=== PATIENT | female | born 1980 | race Caucasian/White ===

== ENCOUNTER 2020-12-11 20:10 | Emergency (ER) | payer SELFPAY ==
[2020-12-11 21:22] VITALS: BP 123/84; PULSE 95; O2SAT 98
--- NOTE | 2020-12-11 21:25 | ERPHSYRPT ---
- History of Present Illness Time Seen by Provider: 12/11/20 20:25 Source: patient Exam Limitations: no limitations Patient Subjective Stated Complaint: pt states "My boyfriend and I were messing around last night and my knee popped." Triage Nursing Assessment: pt ambulated into the er; pt is axo x4; pt is obese; c/o left knee pain; states 9/10 left knee pain; strong left pedal pulse; pt has tenderness with palpation to left knee; no swelling present to left knee; pt had limp with ambulation to left leg; pt states that she has taken tylenol with no relief; hypertension Physician History: Patient is a 40-year-old female presents to our emergency department with complaint of pain to the anterior aspect of her left knee. Patient states she was playing wrestling with her boyfriend when she felt a pop sensation. Injury occurred prior to arrival. Pain described as an ache that is well localized. No radiation. Pain worse with weightbearing. Pain worse with palpation. Pain improved with rest. Patient initially declined pain medication but then agreed to ibuprofen. No other injuries reported. No numbness tingling or weakness. Patient is otherwise generally healthy she is a diabetic however diabetes is well controlled. She voices no other complaints concerns at this time. Method of Injury: twisted Occurred: just prior to arrival Quality: constant Severity of Pain-Max: moderate Severity of Pain-Current: mild Lower Extremities Pain: knee: left Modifying Factors: Improves With: movement (Weightbearing makes it worse. Rest makes it better.) Associated Symptoms: none Allergies/Adverse Reactions: lithium Allergy (Verified 12/11/20 20:22) Vomiting Hx Tetanus, Diphtheria Vaccination/Date Given: Yes Hx Influenza Vaccination/Date Given: No Hx Pneumococcal Vaccination/Date Given: No Immunizations Up to Date: Yes Travel Risk - International Travel Have you traveled outside of the country in past 3 weeks: No - Coronavirus Screening Are you exhibiting any of the following symptoms?: No Close contact with a COVID-19 positive Pt in past 14-21 Days: No - Vaccine Status Have you recieved a Covid-19 vaccination: No - Review of Systems Constitutional: No Symptoms, No Fever, No Chills Eyes: No Symptoms Ears, Nose, & Throat: No Symptoms Respiratory: No Symptoms, No Cough, No Dyspnea Cardiac: No Symptoms, No Chest Pain, No Edema, No Syncope Abdominal/Gastrointestinal: No Symptoms, No Abdominal Pain, No Nausea, No Vomiting, No Diarrhea Genitourinary Symptoms: No Symptoms, No Dysuria Musculoskeletal: No Symptoms, No Back Pain, No Neck Pain Skin: No Symptoms, No Rash Neurological: No Symptoms, No Dizziness, No Focal Weakness, No Sensory Changes Psychological: No Symptoms Endocrine: No Symptoms Hematologic/Lymphatic: No Symptoms Immunological/Allergic: No Symptoms All Other Systems: Reviewed and Negative - Past Medical History Pertinent Past Medical History: Yes Endocrine Medical History: Diabetes Type II, Hypothyroidism Psycho-Social History: Anxiety, Depression - Past Surgical History Past Surgical History: Yes Gastrointestinal: Cholecystectomy Female Surgical History: Tubal Ligation - Social History Smoking Status: Former smoker Exposure to second hand smoke: Yes Drug Use: none Patient Lives Alone: No - Female History Hx Now: No - Nursing Vital Signs Nursing Vital Signs: Initial Vital Signs Temperature 99.1 F 12/11/20 20:23 Pulse Rate 106 H 12/11/20 20:23 Respiratory Rate 20 12/11/20 20:23 Blood Pressure 142/122 12/11/20 20:23 O2 Sat by Pulse Oximetry 97 12/11/20 20:23 Pain Scale Pain Intensity 7 - Physical Exam General Appearance: no apparent distress, alert Eyes, Ears, Nose, Throat Exam: moist mucous membranes Neck Exam: non-tender, supple Cardiovascular/Respiratory Exam: chest non-tender, normal breath sounds, regular rate/rhythm, no respiratory distress Gastrointestinal/Abdominal Exam: non-tender, guarding Back Exam: normal inspection, No vertebral tenderness Hips Exam: bilateral: non-tender, normal inspection, normal range of motion, no evidence of injury Legs Exam: bilateral leg: non-tender, normal inspection, normal range of motion, no evidence of injury Knees Exam: right knee: non-tender, normal inspection, normal range of motion, no evidence of injury, left knee: pain, other (No swelling. Overlying soft tissue intact. Tenderness to palpation along the patellar ligament. All ligaments are stable. No leg leg. Extremity neurovascular intact distally. Compartments are soft.) Ankle Exam: bilateral ankle: non-tender, normal inspection, normal range of motion, no evidence of injury Foot Exam: bilateral foot: non-tender, normal inspection, normal range of motion, no evidence of injury Neuro/Tendon Exam: normal sensation, normal motor functions Mental Status Exam: alert, oriented x 3, cooperative Skin Exam: normal color, warm, dry SpO2 Interpretation: normal SpO2: 98 O2 Delivery: Room Air - Course Nursing assessment & vital signs reviewed: Yes - Radiology Exams Knee X-ray Interpretation: Interpreted by me (No fracture or dislocation. No soft tissue abnormalities.) Ordered Tests: Active Orders 24 hr Category Date Time Status KNEE (3 VIEWS) Stat Exams 12/11/20 20:39 Taken Medication Summary Generic Name Dose Route Start Last Admin Trade Name Marci PRN Reason Stop Dose Admin Ibuprofen 600 mg 12/11/20 21:32 Motrin 600 Mg PO 12/11/20 21:33 STAT ONE - Progress Progress: improved Progress Note: Patient given ibuprofen for pain. X-ray negative for fracture dislocation. No soft tissue abnormalities. Patient declined crutches. Patient does not need a work note at this time. Will discharge at this time. Pain control with [id number] analgesics as needed. Patient agrees to follow-up with her primary care doctor within 48 hours for reevaluation. 12/11/20 21:38 Counseled pt/family regarding: diagnosis, need for follow-up, rad results - Departure Departure Disposition: Home Clinical Impression: Knee pain Condition: Stable Critical Care Time: No Referrals: DOCTOR,NO FAMILY [Primary Care Provider] - MONICA WILKINSON [ACTIVE STAFF] - Instructions: Knee Pain (DC) Additional Instructions: Discharge/Care Plan TYRAKALEN KAMILAH was seen on 12/11/20 in the Emergency Room. The patient was counseled regarding Diagnosis,Lab results, Imaging studies, need for follow up and when to return to the Emergency Room. Prescriptions given: Discharge Note I have spoken with the patient and/or caregivers. I have explained the patient's condition, diagnosis and treatment plan based on the information available to me at this time. I have answered the patient's and/or caregiver's questions and addressed any concerns. The patient and/or caregivers have as good understanding of the patient's diagnosis, condition and treatment plan as can be expected at this point. The vital signs have been stable. The patient's condition is stable and appropriate for discharge from the emergency department. The patient will pursue further outpatient evaluation with the primary care physician or other designated or consulting physician as outlined in the discharge instructions. The patient and/or caregivers are agreeable to this plan of care and follow-up instructions have been explained in detail. The patient and/or caregivers have received these instruction. The patient/and or caregivers are aware that any significant change in condition or worsening of symptoms should prompt an immediate return to this or the closest emergency department or call 911.
[2020-12-11] MEDS ORDERED: MOTRIN 600 MG PO ONE (21:32)
[2020-12-11] MEDS ORDERED: MOTRIN 600 MG ONE (21:34)
--- NOTE | 2020-12-12 08:44 | XRAY ---
Indication: Pain. Comparison: None 3 view left knee obtained. No bony, articular, or soft tissue abnormalities.
== END 2020-12-11 21:45 | disposition home or self-care (01) ==
LOC: ED 20:10
DX: M25.562 Pain in left knee (principal); E11.9 Type 2 diabetes mellitus without complications; E03.9 Hypothyroidism, unspecified; F41.9 Anxiety disorder, unspecified; F32.9 Major depressive disorder, single episode, unspecified
CPT/HCPCS: 73562; 99283; A9270-GY

== ENCOUNTER 2021-02-18 19:17 | Emergency (ER) | payer OTHER ==
[2021-02-18] MEDS ORDERED: TORAdol 30 mg Injection IM ONE (19:47)
--- NOTE | 2021-02-18 19:52 | ERPHSYRPT ---
- History of Present Illness Time Seen by Provider: 02/18/21 19:40 Source: patient Exam Limitations: no limitations Patient Subjective Stated Complaint: pt states she tripped over a curb yesterday and hurt her knee. denies falling. states when she tripped she twisted her lt knee and heard a pop. Triage Nursing Assessment: pt alert and oriented, answers questions approp. pt ambulates into room with limping gait noted. respirations nonlabored. skin warm and dry. tenderness noted to lt knee with light palpation. pedal pu lse and cap refill wnl. Physician History: Patient is a 40-year-old female presents to our ED complaining of left knee pain. Patient states she injured her knee yesterday. Patient was stepping down a curb when she twisted her knee and felt a pop sensation. Patient worked a full shift today. After her shift patient's left knee still felt sore. Patient is here for an evaluation. No other injuries reported. Pain described as an ache that is localized. No radiation. Pain worse with palpation and weightbearing. Pain improved with rest. Symptoms are mild to moderate in intensity. Patient otherwise voices no other complaints or concerns. Method of Injury: twisted Occurred: yesterday Quality: constant Severity of Pain-Max: moderate Severity of Pain-Current: mild Lower Extremities Pain: knee: left Modifying Factors: Improves With: movement Associated Symptoms: none Allergies/Adverse Reactions: lithium Allergy (Verified 02/18/21 20:13) Vomiting Home Medications: Insulin Glargine,Hum.rec.anlog [Lantus Solostar] 27 unit SQ HS 02/18/21 [History] Insulin Lispro 0 unit SQ TID 02/18/21 [History] Levothyroxine Sodium 50 Mcg [Synthroid 50 Mcg] 50 mcg PO DAILY 02/18/21 [History] Sertraline HCl 50 mg [Zoloft 50 mg Tablet] 50 mg PO DAILY 02/18/21 [History] Hx Tetanus, Diphtheria Vaccination/Date Given: No Hx Influenza Vaccination/Date Given: No Hx Pneumococcal Vaccination/Date Given: No Immunizations Up to Date: No Travel Risk - International Travel Have you traveled outside of the country in past 3 weeks: No - Coronavirus Screening Are you exhibiting any of the following symptoms?: No Close contact with a COVID-19 positive Pt in past 14-21 Days: No - Vaccine Status Have you recieved a Covid-19 vaccination: Yes Network 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: [employer] - Review of Systems Constitutional: No Symptoms, No Fever, No Chills Eyes: No Symptoms Ears, Nose, & Throat: No Symptoms Respiratory: No Symptoms, No Cough, No Dyspnea Cardiac: No Symptoms, No Chest Pain, No Edema, No Syncope Abdominal/Gastrointestinal: No Symptoms, No Abdominal Pain, No Nausea, No Vomiting, No Diarrhea Genitourinary Symptoms: No Symptoms, No Dysuria Musculoskeletal: No Symptoms, No Back Pain, No Neck Pain Skin: No Symptoms, No Rash Neurological: No Symptoms, No Dizziness, No Focal Weakness, No Sensory Changes Psychological: No Symptoms Endocrine: No Symptoms Hematologic/Lymphatic: No Symptoms Immunological/Allergic: No Symptoms All Other Systems: Reviewed and Negative - Past Medical History Pertinent Past Medical History: Yes Endocrine Medical History: Diabetes Type II, Hypothyroidism Psycho-Social History: Anxiety, Depression Other Medical History: low vit d and b - Past Surgical History Past Surgical History: Yes Gastrointestinal: Cholecystectomy Female Surgical History: Tubal Ligation - Social History Smoking Status: Current every day smoker How long have you smoked: years Exposure to second hand smoke: Yes Drug Use: none Patient Lives Alone: No - Female History Hx Last Menstrual Period: last month Hx Now: No (tubal) - Nursing Vital Signs Nursing Vital Signs: Initial Vital Signs Temperature 97.3 F 02/18/21 19:32 Pulse Rate 84 02/18/21 19:32 Respiratory Rate 18 02/18/21 19:32 Blood Pressure 168/108 02/18/21 19:32 O2 Sat by Pulse Oximetry 97 02/18/21 19:32 Pain Scale Pain Intensity 5 - Physical Exam General Appearance: no apparent distress, alert Eyes, Ears, Nose, Throat Exam: TMs normal, pharynx normal, moist mucous membranes Neck Exam: normal inspection, non-tender, supple Cardiovascular/Respiratory Exam: chest non-tender, normal breath sounds, regular rate/rhythm, no respiratory distress Gastrointestinal/Abdominal Exam: non-tender, No guarding Back Exam: normal inspection, normal range of motion, No vertebral tenderness Hips Exam: bilateral: non-tender, normal inspection, normal range of motion, no evidence of injury Legs Exam: bilateral leg: non-tender, normal inspection, normal range of motion, no evidence of injury Knees Exam: right knee: non-tender, normal inspection, normal range of motion, no evidence of injury, left knee: pain, other (Tenderness palpation along the tibial plateau. All ligaments are stable. No signs of abrasions no ecchymosis. No dislocations. Extremities neurovascular intact distally. Compartments are soft. Cap refill less than 2 seconds.) Ankle Exam: bilateral ankle: non-tender, normal inspection, normal range of motion, no evidence of injury Foot Exam: bilateral foot: non-tender, normal inspection, normal range of motion, no evidence of injury Neuro/Tendon Exam: normal sensation, normal motor functions Mental Status Exam: alert, oriented x 3, cooperative Skin Exam: normal color, warm, dry SpO2 Interpretation: normal SpO2: 97 O2 Delivery: Room Air - Course Nursing assessment & vital signs reviewed: Yes - Radiology Exams Knee X-ray Interpretation: Interpreted by me (Small spur at superior pole patella. Otherwise no fractures or dislocations. No soft tissue abnormalities.) Ordered Tests: Active Orders 24 hr Category Date Time Status KNEE (3 VIEWS) Stat Exams 02/18/21 19:46 Taken Medication Summary Discontinued Medications Generic Name Dose Route Start Last Admin Trade Name Griffinq PRN Reason Stop Dose Admin Ketorolac Tromethamine 30 mg 02/18/21 19:47 02/18/21 20:18 Toradol 30 Mg Injection IM 02/18/21 19:48 30 mg STAT ONE Administration Ketorolac Tromethamine Confirm 02/18/21 20:16 Toradol 30 Mg Injection Administered 02/18/21 20:17 Dose 30 mg .ROUTE .STK-MED ONE - Progress Progress: improved Progress Note: Patient reassessed. She is well. X-rays negative for fracture dislocation. However this is not exclude the possibility of soft tissue injury. This was explained to patient. We will provide patient with bilateral axillary crutches. Patient will also be provided work note. Patient voices no other complaints concerns at this time. Will discharge home at this time. 02/18/21 21:22 Counseled pt/family regarding: diagnosis, need for follow-up, rad results - Departure Departure Disposition: Home Clinical Impression: Left knee sprain Condition: Stable Critical Care Time: No Referrals: RICO ARAUZ [Primary Care Provider] - Additional Instructions: Discharge/Care Plan KALEN MARY was seen on 02/18/21 in the Emergency Room. The patient was counseled regarding Diagnosis,Lab results, Imaging studies, need for follow up and when to return to the Emergency Room. Prescriptions given: Discharge Note I have spoken with the patient and/or caregivers. I have explained the patient's condition, diagnosis and treatment plan based on the information available to me at this time. I have answered the patient's and/or caregiver's questions and addressed any concerns. The patient and/or caregivers have as good understanding of the patient's diagnosis, condition and treatment plan as can be expected at this point. The vital signs have been stable. The patient's condition is stable and appropriate for discharge from the emergency department. The patient will pursue further outpatient evaluation with the primary care physician or other designated or consulting physician as outlined in the discharge instructions. The patient and/or caregivers are agreeable to this plan of care and follow-up instructions have been explained in detail. The patient and/or caregivers have received these instruction. The patient/and or caregivers are aware that any significant change in condition or worsening of symptoms should prompt an immediate return to this or the closest emergency department or call 911. Forms: Work/School Release Form
[2021-02-18] MEDS ORDERED: TORAdol 30 mg Injection ONE (20:16)
[2021-02-18 22:23] VITALS: BP 139/90; PULSE 75; O2SAT 100
--- NOTE | 2021-02-20 06:12 | XRAY ---
Exam: 3 view left knee series from 02/18/2021. Comparison: 3 view left knee series from 12/11/2020. Comparison: Left knee pain; twisting injury. Findings: AP, shallow oblique, and lateral radiographs are submitted for evaluation. I see no acute left knee fracture, dislocation, or suprapatellar joint effusions. There is a tiny spur at the upper posterior margin of the left patella. The patellofemoral joint appears unremarkable on the lateral radiograph. The femoral tibial joint appears well-preserved and displays smooth articular margins. Impression: 1. No acute left knee fracture, dislocation, or suprapatellar joint effusion is seen. 2. The joint spaces about the left knee are well-preserved. There is a tiny spur at the upper posterior margin of the left patella.
== END 2021-02-18 22:23 | disposition home or self-care (01) ==
LOC: ED 19:17
DX: S83.92XA Sprain of unspecified site of left knee, initial encounter (principal); M25.562 Pain in left knee; W18.49XA Other slipping, tripping and stumbling without falling, initial encounter; Z79.899 Other long term (current) drug therapy; E11.9 Type 2 diabetes mellitus without complications
CPT/HCPCS: 73562; 96372; 99284; J1885

== ENCOUNTER 2021-02-23 13:13 | Emergency (ER) | payer OTHER ==
[2021-02-23 13:27] VITALS: BP 156/90; PULSE 94; O2SAT 98
[2021-02-23] MEDS ORDERED: TORAdol 30 mg Injection IM ONE (13:36)
[2021-02-23] MEDS ORDERED: TORAdol 30 mg Injection ONE (13:37)
--- NOTE | 2021-02-23 13:42 | ERPHSYRPT ---
- History of Present Illness Time Seen by Provider: 02/23/21 13:36 Source: patient Exam Limitations: no limitations Patient Subjective Stated Complaint: L knee pain Triage Nursing Assessment: pt to ED c/o L knee pain, swelling and bruising unknown onset. pt was in this ED 02/18 for same sx, dx with sprain and told to wrap with CLINT and take otc ibuprofen and tylenol. pt reports she also has used ice and heat with no pain relief. pt reports unable to work d/t pain. rates 05/18 at this time. no alleviating factors. ambulatory with no assist Physician History: 40 years old female presented in ER with chief complaint of left knee pain for almost 10 days without any fall or obvious known trauma. She was evaluated in the ER few days ago, was recommended Clint wrap, NSAIDs which she has been using but still pain is not going away and noticed some swelling and bruising. Pain is moderate intensity sharp nature more with ambulation and better with resting. She was later evaluated at primary care office and was recommended to go for physical therapy before she can get MRI of her knee. Quality: intermittent, sharpness Severity of Pain-Max: severe Severity of Pain-Current: moderate Lower Extremities Pain: knee: left Modifying Factors: Improves With: immobilization, rest. Worsens With: movement Allergies/Adverse Reactions: lithium Allergy (Verified 02/23/21 13:27) Vomiting Home Medications: Insulin Glargine,Hum.rec.anlog [Lantus Solostar] 27 unit SQ HS 02/18/21 [History] Insulin Lispro 0 unit SQ TID 02/18/21 [History] Levothyroxine Sodium 50 Mcg [Synthroid 50 Mcg] 50 mcg PO DAILY 02/18/21 [History] Sertraline HCl 50 mg [Zoloft 50 mg Tablet] 50 mg PO DAILY 02/18/21 [History] Hx Tetanus, Diphtheria Vaccination/Date Given: Yes Hx Influenza Vaccination/Date Given: No Hx Pneumococcal Vaccination/Date Given: No Immunizations Up to Date: No Travel Risk - International Travel Have you traveled outside of the country in past 3 weeks: No - Coronavirus Screening Are you exhibiting any of the following symptoms?: No Close contact with a COVID-19 positive Pt in past 14-21 Days: No - Vaccine Status Have you recieved a Covid-19 vaccination: Yes 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: [employer] - Review of Systems Constitutional: No Symptoms Eyes: No Symptoms Respiratory: No Symptoms Cardiac: No Symptoms Abdominal/Gastrointestinal: No Symptoms Musculoskeletal: Arthralgias Neurological: No Symptoms Endocrine: No Symptoms Hematologic/Lymphatic: No Symptoms - Past Medical History Pertinent Past Medical History: Yes Endocrine Medical History: Diabetes Type II, Hypothyroidism Psycho-Social History: Anxiety, Depression Other Medical History: low vit d and b - Past Surgical History Past Surgical History: Yes Gastrointestinal: Cholecystectomy Female Surgical History: Tubal Ligation - Social History Smoking Status: Current every day smoker How long have you smoked: years Exposure to second hand smoke: No Drug Use: none Patient Lives Alone: No - Female History Hx Now: No (tubal) - Nursing Vital Signs Nursing Vital Signs: Initial Vital Signs Temperature 97.7 F 02/23/21 13:22 Pulse Rate 94 H 02/23/21 13:22 Respiratory Rate 18 02/23/21 13:22 Blood Pressure 156/90 02/23/21 13:22 O2 Sat by Pulse Oximetry 98 02/23/21 13:22 Pain Scale Pain Intensity 10 - Physical Exam General Appearance: no apparent distress, alert Neck Exam: normal inspection, full range of motion Cardiovascular/Respiratory Exam: normal breath sounds, regular rate/rhythm Back Exam: normal inspection, normal range of motion Legs Exam: bilateral leg: non-tender, normal inspection, normal range of motion, no evidence of injury Knees Exam: right knee: non-tender, left knee: bone tenderness (Generalized), pain, soft tissue tenderness, swelling (Minimal swelling generalized), bilateral knee: normal inspection, normal range of motion, no evidence of injury Neuro/Tendon Exam: normal sensation, normal motor functions Mental Status Exam: alert, oriented x 3, cooperative Skin Exam: normal color SpO2 Interpretation: normal SpO2: 98 O2 Delivery: Room Air Ordered Tests: Medication Summary Discontinued Medications Generic Name Dose Route Start Last Admin Trade Name Freq PRN Reason Stop Dose Admin Ketorolac Tromethamine 30 mg 02/23/21 13:36 02/23/21 13:39 Toradol 30 Mg Injection IM 02/23/21 13:37 30 mg STAT ONE Administration Ketorolac Tromethamine Confirm 02/23/21 13:37 Toradol 30 Mg Injection Administered 02/23/21 13:38 Dose 30 mg .ROUTE .STK-MED ONE - Progress Progress: improved Progress Note: 02/23/21 13:40 She is given Toradol for symptomatic relief. Patient has been taking ibuprofen I will switch her to diclofenac along with Tylenol to continue, outpatient follow-up with physical therapy and if no improvement patient needs MRI for better evaluation. She is advised to do weightbearing/activity as tolerated. Discussed signs symptoms of worsening needing return to ER which he seems understanding. Stable for discharge. Counseled pt/family regarding: diagnosis, need for follow-up - Departure Departure Disposition: Home Clinical Impression: Left knee sprain Qualifiers: Encounter type: subsequent encounter Involved ligament of knee: unspecified ligament Qualified Code(s): S83.92XD - Sprain of unspecified site of left knee, subsequent encounter Condition: Stable Critical Care Time: No Referrals: RICO ARAUZ [Primary Care Provider] - Follow Up with PCP/3 days ORTHO - DARLYN MURILLO [employer] [NON-STAFF PHY W/O PRIVILEGES] - (Call tomorrow for appointment) Instructions: Knee Sprain (DC), Knee Pain (DC) Additional Instructions: Use Tylenol/diclofenac alternate for pain control. Weightbearing/activity as tolerated. Apply ice. Follow-up with primary care and orthopedic surgery for reevaluation. Return to ER for worsening pain swelling, difficulty movements etc. Do not take ibuprofen along with diclofenac. Prescriptions: Diclofenac Sodium 75 mg PO BID PRN 10 Days #20 tablet.dr PHILLIPS Reason: Pain
== END 2021-02-23 14:06 | disposition home or self-care (01) ==
LOC: ED 13:13
DX: S83.92XD Sprain of unspecified site of left knee, subsequent encounter (principal); M25.562 Pain in left knee
CPT/HCPCS: 96372; 99283; J1885

== ENCOUNTER 2021-06-27 19:25 | Emergency (ER) | payer OTHER ==
--- NOTE | 2021-06-27 19:30 | ERPHSYRPT ---
- History of Present Illness Time Seen by Provider: 06/27/21 19:29 Source: patient Exam Limitations: no limitations Physician History: This is an insulin-dependent diabetic 40-year-old white female who is obese and also has a history of hypothyroidism who presents with an elevated blood sugar of over 300. Patient is very concerned because she is usually much lower than that. She states that she feels flushed and anxious and warm. He denies chest pain. She denies abdominal pain. She denies nausea vomiting diarrhea. She denies shortness of breath. Timing/Duration: today Severity: mild (To moderate) Associated Symptoms: other (Feels warm and flushed), No nausea, No vomiting, No abdominal pain, No shortness of breath, No chest pain, No fever Allergies/Adverse Reactions: lithium Allergy (Verified 06/27/21 19:50) Vomiting Home Medications: Insulin Glargine,Hum.rec.anlog [Lantus Solostar] 37 unit SQ HS 02/18/21 [History] Insulin Lispro 0 unit SQ TID 02/18/21 [History] Levothyroxine Sodium 50 Mcg [Synthroid 50 Mcg] 50 mcg PO DAILY 02/18/21 [History] Sertraline HCl 50 mg [Zoloft 50 mg Tablet] 50 mg PO DAILY 02/18/21 [History] Hx Tetanus, Diphtheria Vaccination/Date Given: Yes Hx Influenza Vaccination/Date Given: No Hx Pneumococcal Vaccination/Date Given: No Travel Risk - International Travel Have you traveled outside of the country in past 3 weeks: No - Coronavirus Screening Are you exhibiting any of the following symptoms?: No Close contact with a COVID-19 positive Pt in past 14-21 Days: No - Vaccine Status Have you recieved a Covid-19 vaccination: Yes [employer] - Review of Systems Constitutional: No Symptoms Eyes: No Symptoms Ears, Nose, & Throat: No Symptoms Respiratory: No Symptoms Cardiac: No Symptoms Abdominal/Gastrointestinal: No Symptoms Genitourinary Symptoms: No Symptoms Musculoskeletal: No Symptoms Skin: Other Neurological: No Symptoms Psychological: Anxiety Endocrine: No Symptoms, Other (Feels warm and flushed) Hematologic/Lymphatic: No Symptoms Immunological/Allergic: No Symptoms All Other Systems: Reviewed and Negative - Past Medical History Pertinent Past Medical History: Yes Endocrine Medical History: Diabetes Type II, Hypothyroidism Psycho-Social History: Anxiety, Depression Other Medical History: low vit d and b - Past Surgical History Past Surgical History: Yes Gastrointestinal: Cholecystectomy Female Surgical History: Tubal Ligation - Social History Smoking Status: Current every day smoker How long have you smoked: years Exposure to second hand smoke: No Drug Use: none Patient Lives Alone: No - Nursing Vital Signs Nursing Vital Signs: Initial Vital Signs Temperature 98.4 F 06/27/21 19:34 Pulse Rate 97 H 06/27/21 19:34 Respiratory Rate 18 06/27/21 19:34 Blood Pressure 151/108 06/27/21 19:34 O2 Sat by Pulse Oximetry 98 06/27/21 19:34 Pain Scale Pain Intensity 0 - Physical Exam General Appearance: no apparent distress, alert, anxiety, obese Eye Exam: PERRL/EOMI, eyes nml inspection Ears, Nose, Throat Exam: normal ENT inspection, moist mucous membranes Neck Exam: normal inspection, non-tender, supple, full range of motion Respiratory Exam: normal breath sounds, lungs clear, No chest tenderness, No respiratory distress Cardiovascular Exam: regular rate/rhythm, normal heart sounds, normal peripheral pulses Gastrointestinal/Abdomen Exam: soft, normal bowel sounds, No tenderness Pelvic Exam: not done Rectal Exam: not done Back Exam: normal inspection, normal range of motion, CVA tenderness Extremity Exam: normal inspection, normal range of motion, pelvis stable Neurologic Exam: alert, oriented x 3, cooperative, 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, normal mood/affect, nml cerebellar function, nml station & gait, sensation nml Skin Exam: normal color, warm, dry Lymphatic Exam: No adenopathy SpO2 Interpretation: normal O2 Delivery: Room Air - Course Nursing assessment & vital signs reviewed: Yes Ordered Tests: Active Orders 24 hr Category Date Time Status Sweatband Separator STAT Care 06/27/21 19:39 Active IV Insertion STAT Care 06/27/21 19:38 Active POCT Glucose Check STAT Care 06/27/21 19:38 Active Pulse Oximetry (ED) STAT Care 06/27/21 19:38 Active CBC W DIFF Stat Lab 06/27/21 19:38 Completed CMP Stat Lab 06/27/21 19:38 Completed CULTURE,URINE Stat Lab 06/27/21 20:01 Received Lactic Acid Urgent Lab 06/27/21 19:38 Completed MAGNESIUM Stat Lab 06/27/21 19:38 Completed POCT GLUCOSE Stat Lab 06/27/21 19:39 Completed UA W/RFX UR CULTURE Stat Lab 06/27/21 20:01 Completed Medication Summary Generic Name Dose Route Start Last Admin Trade Name Marci PRN Reason Stop Dose Admin Sodium Chloride 1,000 mls @ 999 mls/hr 06/27/21 19:38 06/27/21 20:15 Sodium Chloride 0.9% 1000 Ml IV 06/27/21 20:38 999 mls/hr .[id number] STA Administration Discontinued Medications Generic Name Dose Route Start Last Admin Trade Name Marci PRN Reason Stop Dose Admin Cephalexin HCl 500 mg 06/27/21 20:24 06/27/21 20:30 Cephalexin Mh500 Mg Capsule PO 06/27/21 20:25 500 mg STAT ONE Administration Sodium Chloride Confirm 06/27/21 20:12 Sodium Chloride 0.9% 1000 Ml Administered 06/27/21 20:13 Dose 1,000 mls @ ud .ROUTE .STK-MED ONE Lab/Rad Data: Laboratory Result Diagrams 06/27/21 19:38 06/27/21 19:38 Laboratory Results 06/27/21 06/27/21 06/27/21 Range/Units 20:01 19:39 19:38 WBC (4.0-10.5) K/mm3 RBC (4.1-5.4) M/mm3 Hgb (12.0-16.0) gm/dl Hct (35-47) % MCV (78-100) fl MCH (26-32) pg MCHC (32-36) g/dl RDW (11.5-14.0) % Plt Count (150-450) K/mm3 MPV (7.5-11.0) fl Gran % (36.0-66.0) % Eos # (Auto) (0-0.5) Absolute Lymphs (auto) (1.0-4.6) Absolute Monos (auto) (0.0-1.3) Lymphocytes % (24.0-44.0) % Monocytes % (0.0-12.0) % Eosinophils % (0.00-5.0) % Basophils % (0.0-0.4) % Absolute Granulocytes (1.4-6.9) Basophils # (0-0.4) Sodium (137-145) mmol/L Potassium (3.5-5.1) mmol/L Chloride (98-107) mmol/L Carbon Dioxide (22-30) mmol/L Anion Gap (5-15) MEQ/L BUN (7-17) mg/dL Creatinine (0.52-1.04) mg/dL Estimated GFR ML/MIN Glucose (74-106) mg/dL POC Glucometer 258 H (74 to 106) mg/dL Lactic Acid 1.3 (0.4-2.0) Calcium (8.4-10.2) mg/dL Magnesium (1.6-2.3) mg/dL Total Bilirubin (0.2-1.3) mg/dL AST (14-36) U/L ALT (0-35) U/L Alkaline Phosphatase (38-126) U/L Serum Total Protein (6.3-8.2) g/dL Albumin (3.5-5.0) g/dL Urine Color OSIRIS (YELLOW) Urine Appearance SLIGHTLY CLOUDY (CLEAR) Urine pH 5.0 (5-6) Ur Specific [place] 1.043 (1.005-1.025) Urine Protein 100 (Negative) Urine Ketones SMALL (NEGATIVE) Urine Blood NEGATIVE (0-5) Juan/ul Urine Nitrite NEGATIVE (NEGATIVE) Urine Bilirubin NEGATIVE (NEGATIVE) Urine Urobilinogen 2 (0-1) mg/dL Ur Leukocyte Esterase TRACE (NEGATIVE) Urine WBC (Auto) 6-10 (0-5) /HPF Urine RBC (Auto) 0-2 (0-2) /HPF U Epithel Cells (Auto) RARE (FEW) /HPF Urine Bacteria (Auto) NONE (NEGATIVE) /HPF Urine Mucus (Auto) SLIGHT (NEGATIVE) /HPF Urine Culture Reflexed YES (NO) Urine Glucose >=500 (NEGATIVE) mg/dL 06/27/21 06/27/21 Range/Units 19:38 19:38 WBC 6.7 (4.0-10.5) K/mm3 RBC 4.61 (4.1-5.4) M/mm3 Hgb 11.5 L (12.0-16.0) gm/dl Hct 37.2 (35-47) % MCV 80.7 (78-100) fl MCH 24.9 L (26-32) pg MCHC 30.9 L (32-36) g/dl RDW 14.5 H (11.5-14.0) % Plt Count 341 (150-450) K/mm3 MPV 9.6 (7.5-11.0) fl Gran % 55.9 (36.0-66.0) % Eos # (Auto) 0.29 (0-0.5) Absolute Lymphs (auto) 2.25 (1.0-4.6) Absolute Monos (auto) 0.39 (0.0-1.3) Lymphocytes % 33.6 (24.0-44.0) % Monocytes % 5.8 (0.0-12.0) % Eosinophils % 4.3 (0.00-5.0) % Basophils % 0.4 (0.0-0.4) % Absolute Granulocytes 3.73 (1.4-6.9) Basophils # 0.03 (0-0.4) Sodium 139 (137-145) mmol/L Potassium 3.5 (3.5-5.1) mmol/L Chloride 102 (98-107) mmol/L Carbon Dioxide 27 (22-30) mmol/L Anion Gap 14.0 (5-15) MEQ/L BUN 10 (7-17) mg/dL Creatinine 0.63 (0.52-1.04) mg/dL Estimated GFR > 60.0 ML/MIN Glucose 263 H (74-106) mg/dL POC Glucometer (74 to 106) mg/dL Lactic Acid (0.4-2.0) Calcium 9.0 (8.4-10.2) mg/dL Magnesium 1.5 L (1.6-2.3) mg/dL Total Bilirubin 0.50 (0.2-1.3) mg/dL AST 112 H (14-36) U/L ALT 98 H (0-35) U/L Alkaline Phosphatase 92 (38-126) U/L Serum Total Protein 7.7 (6.3-8.2) g/dL Albumin 4.3 (3.5-5.0) g/dL Urine Color (YELLOW) Urine Appearance (CLEAR) Urine pH (5-6) Ur Specific [place] (1.005-1.025) Urine Protein (Negative) Urine Ketones (NEGATIVE) Urine Blood (0-5) Juan/ul Urine Nitrite (NEGATIVE) Urine Bilirubin (NEGATIVE) Urine Urobilinogen (0-1) mg/dL Ur Leukocyte Esterase (NEGATIVE) Urine WBC (Auto) (0-5) /HPF Urine RBC (Auto) (0-2) /HPF U Epithel Cells (Auto) (FEW) /HPF Urine Bacteria (Auto) (NEGATIVE) /HPF Urine Mucus (Auto) (NEGATIVE) /HPF Urine Culture Reflexed (NO) Urine Glucose (NEGATIVE) mg/dL - Progress Progress: improved, re-examined Counseled pt/family regarding: lab results, diagnosis, need for follow-up - Departure Departure Disposition: Home Clinical Impression: UTI (urinary tract infection), Hyperglycemia Condition: Stable Critical Care Time: No Referrals: JACOB CHI [Primary Care Provider] - Follow up/PCP as directed Additional Instructions: Drink plenty of fluids. Monitor your blood sugar and take your blood sugar medication as prescribed. Take your antibiotics as prescribed. Follow-up with your primary care physician on 06/30/2021. Prescriptions: Cephalexin Mh 500 mg [Keflex 500 mg] 500 mg PO TID #21 cap
[2021-06-27] MEDS ORDERED: Sodium Chloride 0.9% 1000 ML 1,000 ML IV STA (19:38)
[2021-06-27 20:06] LABS: Absolute Neutrophil Ct (ANC) 3.73 (1.4-6.9); BASOPHIL % 0.4 % (0.0-0.4); Basophil (Absolute #) 0.03 (0-0.4); Eosinophil % 4.3 % (0.00-5.0); Eosinophil (Absolute #) 0.29 (0-0.5); Hematocrit 37.2 % (35-47); Hemoglobin 11.5 gm/dl (12.0-16.0); Lymphocyte (Absolute #) 2.25 (1.0-4.6); Lymphocytes % 33.6 % (24.0-44.0); Mean Cell Volume 80.7 fl (78-100); Mean Corpuscular Hemoglobin 24.9 pg (26-32); Mean Corpuscular Hgb Concent. 30.9 g/dl (32-36); Mean Platelet Volume 9.6 fl (7.5-11.0); Monocyte (Absolute #) 0.39 (0.0-1.3); Monocytes % 5.8 % (0.0-12.0); Neutrophil % 55.9 % (36.0-66.0); Platelet Count 341 K/mm3 (150-450); Red Blood Count 4.61 M/mm3 (4.1-5.4); Red Cell Distribution Width 14.5 % (11.5-14.0); White Blood Count 6.7 K/mm3 (4.0-10.5)
[2021-06-27] MEDS ORDERED: Sodium Chloride 0.9% 1000 ML 1,000 ML ONE (20:12)
[2021-06-27 20:15] LABS: Appearance SLIGHTLY CLOUDY (CLEAR); Bilirubin NEGATIVE (NEGATIVE); Blood NEGATIVE Ery/ul (0-5); Epithelial Cells RARE /HPF (FEW); Glucose >=500 mg/dL (NEGATIVE); Ketones SMALL (NEGATIVE); Leukocyte Esterase TRACE (NEGATIVE); Mucus SLIGHT /HPF (NEGATIVE); Nitrite NEGATIVE (NEGATIVE); Protein,Urine Dip 100 (Negative); RBC 0-2 /HPF (0-2); Specific Gravity 1.043 (1.005-1.025); Urobilinogen 2 mg/dL (0-1)
[2021-06-27 20:20] LABS: ALBUMIN 4.3 g/dL (3.5-5.0); ALKALINE PHOSPHATASE 92 U/L (38-126); BLOOD UREA NITROGEN 10 mg/dL (7-17); CHLORIDE 102 mmol/L (98-107); Carbon Dioxide 27 mmol/L (22-30); Creatinine 1 0.63 mg/dL (0.52-1.04); EST GLOMERULAR FILTRATION RATE > 60.0 ML/MIN; Glucose 263 mg/dL (74-106); MAGNESIUM 1.5 mg/dL (1.6-2.3); Potassium 3.5 mmol/L (3.5-5.1); SGOT/AST 112 U/L (14-36); SGPT/ALT 98 U/L (0-35); SODIUM 139 mmol/L (137-145); Total Protein 7.7 g/dL (6.3-8.2)
[2021-06-27] MEDS ORDERED: KEFLEX 500 MG PO ONE (20:24)
[2021-06-27] MEDS ORDERED: KEFLEX 500 MG ONE (20:29)
[2021-06-30 17:04] VITALS: BP 137/76; PULSE 90; O2SAT 98
== END 2021-06-27 19:48 | disposition home or self-care (01) ==
LOC: ED 19:25
DX: N39.0 Urinary tract infection, site not specified (principal); E11.65 Type 2 diabetes mellitus with hyperglycemia; Z79.4 Long term (current) use of insulin; E03.9 Hypothyroidism, unspecified; Z72.0 Tobacco use
CPT/HCPCS: 36000; 36415; 80053; 81001; 82947; 83605; 83735; 85025; 87077; 87086; 87186; 93041; 94760; 99284; A9270-GY